=== PATIENT | male | born 1990 | race African-American/Black ===

== ENCOUNTER 2017-09-22 18:58 | Emergency (ER) | payer SELFPAY ==
[~2017-09-22] VITALS: Ht 188 cm; Wt 66.0 kg
[2017-09-22 20:28] LABS: ALANINE AMINOTRANSFERASE 19 U/L (12-78); ALBUMIN 3.1 g/dL (3.4-5.0); ANION GAP 6 mmol/L (5-15); CALCIUM 8.6 mg/dL (8.5-10.1); CHLORIDE 106 mmol/L (98-107); CREATININE 1.01 mg/dL (0.7-1.3)
[2017-09-22 20:29] LABS: ALKALINE PHOSPHATASE 65 U/L (45-117); BILIRUBIN,TOTAL 0.4 mg/dL (0.2-1.0); TOTAL PROTEIN 7.3 g/dL (6.4-8.2)
[2017-09-22 20:30] LABS: BASOPHILS # (AUTO) 0.04 x10^3/uL (0-0.1); BASOPHILS % (AUTO) 1 % (0-1); EOSINOPHILS # (AUTO) 0.05 x10^3/uL (0-0.4); EOSINOPHILS % (AUTO) 1 % (1-7); LYMPHOCYTES # (AUTO) 1.69 x10^3/uL (1-3.4); LYMPHOCYTES % (AUTO) 25 % (22-44); MD NO; MEAN CORPUSCULAR HEMOGLOBIN 26.2 pg (27.5-34.5); MEAN CORPUSCULAR HGB CONC 32.3 g/dL (33.2-36.2); MEAN CORPUSCULAR VOLUME 81.3 fL (81-97); MEAN PLATELET VOLUME 8.5 fL (7.4-10.4); MONOCYTES # (AUTO) 0.49 x10^3/uL (0.2-0.8); MONOCYTES % (AUTO) 7 % (2-9); NEUTROPHILS # (AUTO) 4.58 x10^3/uL (1.8-6.8); NEUTROPHILS % (AUTO) 67 % (42-75); PLATELET COUNT 249 x10^3/uL (130-400); RED CELL DISTRIBUTION WIDTH 14.2 % (9.4-14.8)
[2017-09-22] MEDS ORDERED: SODIUM CHLORIDE FLUSH 10ML SYR IVF ONE (20:30)
[2017-09-22] MEDS ORDERED: OMNIPAQUE 350 MG/ML, 100ML BOTTLE ONE (21:17)
[2017-09-22 22:08] VITALS: BP 94/65
== END 2017-09-22 22:50 | disposition home or self-care (01) ==
LOC: ED 21:55
DX: K92.1 Melena (principal); J18.9 Pneumonia, unspecified organism; R10.32 Left lower quadrant pain; Z79.899 Other long term (current) drug therapy; F17.200 Nicotine dependence, unspecified, uncomplicated
CPT/HCPCS: 36415; 74177; 80053; 80307; 85025; 99285; Q9967